=== PATIENT | female | born 1955 | race Caucasian/White ===

== ENCOUNTER 2020-10-29 09:46 | Day surgery (SDC) | payer OTHER ==
[2020-10-29] MEDS ORDERED: diphenhydrAMINE 50 MG/ML VIAL ONE (11:58)
[2020-10-29] MEDS ORDERED: MIDAZOLAM 5 MG/5 ML VIAL ONE (11:59)
[2020-10-29] MEDS ORDERED: LIDOCAINE 2% 100 MG/5 ML UJET TP ONE ×2 (11:59→12:20)
[2020-10-29] MEDS ORDERED: fentaNYL citrate 0.05 MG/ML VIAL ONE (11:59)
[2020-10-29] MEDS ORDERED: MIDAZOLAM 2 MG/2 ML VIAL IVP ONE (12:20)
[2020-10-29] MEDS ORDERED: fentaNYL citrate 0.05 MG/ML VIAL IVP ONE (12:20)
== END 2020-10-29 14:28 | disposition home or self-care (01) ==
LOC: MDS 09:46 → MMU 09:46 → MDS 14:28
PROVIDERS: ATTEND Internal Medicine Gastroenterology
DX: K62.5 Hemorrhage of anus and rectum (principal); K63.5 Polyp of colon; K64.8 Other hemorrhoids; K59.00 Constipation, unspecified; E11.9 Type 2 diabetes mellitus without complications; E78.5 Hyperlipidemia, unspecified; F32.9 Major depressive disorder, single episode, unspecified; Z90.710 Acquired absence of both cervix and uterus; Z79.84 Long term (current) use of oral hypoglycemic drugs; Z79.899 Other long term (current) drug therapy
CPT/HCPCS: 45385; 88305; J2250; J3010; J1200